=== PATIENT | male | born 1950 | race Caucasian/White ===

== ENCOUNTER 2019-09-30 05:23 | Emergency (ER) | payer MEDICARE, OTHER ==
[~2019-09-30] VITALS: Ht 177.8 cm; Wt 145.2 kg
[~2019-09-30 05:23] MED LIST: ALL DAY ALLERGY10 M1 PO; ASPI81CH PO; BUSP10 PO; DOCU100 PO; Diovan320 MG; FLUT.05NI; FURO20 PO; GABA300 PO; GLIP5 PO; GLUC500 PO; HYDCHL25 PO; LEVCAR10 PO; LORA1 PO; Lipoic Acid1 GM; METF500 PO; PREG75 PO; ROSU10TA PO
[2019-09-30 08:09] LABS: Alanine Aminotransfer (ALT/SGP 21 U/L (12-78); Albumin, Blood 3.4 g/dL (3.4-5.0); Albumin/Globulin Ratio 0.9 (0.8-1.8); Alk Phos 84 U/L (50-136); Anion Gap 4 mmol/L (6-16); Aspartate Aminotrans (AST/SGOT 11 U/L (12-37); Bilirubin, Total 0.6 mg/dL (0.1-1.0); Blood Urea Nitrogen 18 mg/dL (8-24); Bun/Creatinine Ratio 17.8 (12.0-20.0); CO2, Blood 29 mmol/L (21-32); Calcium, Blood 9.1 mg/dL (8.5-10.1); Chloride, Blood 104 mmol/L (98-108); Creatinine, Blood 1.01 mg/dL (0.60-1.20); Globulin, Blood 3.6 g/dL (2.2-4.0); Glomerular Filtration Rate >60 (60-); Glucose, Blood 153 mg/dL (70-99); Potassium, Blood 4.1 mmol/L (3.5-5.5); Sodium, Blood 137 mmol/L (136-145)
[2019-09-30 08:32] LABS: BASOPHILS ABSOLUTE AUTO 0.05 K/mm3 (0.00-0.23); BASOPHILS PERCENT AUTO 1 % (0-2); EOSINOPHILS ABSOLUTE AUTO 0.14 K/mm3 (0.00-0.68); EOSINOPHILS PERCENT AUTO 2 % (0-6); Hematocrit 44.2 % (37.0-53.0); Hemoglobin 15.1 g/dL (13.5-17.5); IMMATURE GRAN ABSOLUTE AUTO 0.03 K/mm3 (0.00-0.10); IMMATURE GRAN PERCENT AUTO 0 % (0-1); LYMPHOCYTES ABSOLUTE AUTO 1.26 K/mm3 (0.84-5.20); LYMPHOCYTES PERCENT AUTO 14 % (21-46); MONOCYTES ABSOLUTE AUTO 0.94 K/mm3 (0.16-1.47); MONOCYTES PERCENT AUTO 11 % (4-13); Mean Corpuscular HGB 31.1 pg (26.0-34.0); Mean Corpuscular HGB Conc 34.2 g/dL (31.5-36.5); Mean Corpuscular Volume 91 fL (80-100); Mean Platelet Volume 10.2 fL (9.1-12.4); NEUTROPHILS ABSOLUTE AUTO 6.57 K/mm3 (1.96-9.15); NEUTROPHILS PERCENT AUTO 73 % (41-73); Platelet Count 141 K/mm3 (150-400); RDW Coefficient Variation 12.4 % (11.7-14.2); RDW Standard Deviation 41.2 fL (35.1-46.3); Red Blood Cell Count 4.85 M/mm3 (4.30-5.90); White Blood Cell Count 8.99 K/mm3 (4.00-11.30)
== END 2019-09-30 09:50 | disposition home or self-care (01) ==
LOC: ER 05:23
PROVIDERS: Emergency Medicine
DX: J11.1 Influenza due to unidentified influenza virus with other respiratory manifestations (principal); E11.49 Type 2 diabetes mellitus with other diabetic neurological complication; F43.10 Post-traumatic stress disorder, unspecified; M54.5 Low back pain; G89.29 Other chronic pain; M47.819 Spondylosis without myelopathy or radiculopathy, site unspecified; Z87.891 Personal history of nicotine dependence; Z88.8 Allergy status to other drugs, medicaments and biological substances; Z79.84 Long term (current) use of oral hypoglycemic drugs; Z79.82 Long term (current) use of aspirin; Z79.899 Other long term (current) drug therapy
CPT/HCPCS: 36415; 71045; 80053; 85025; 94640; 99283-25; J7030

== ENCOUNTER 2021-05-24 21:54 | Emergency (ER) | payer OTHER | END 2021-05-24 22:22 | disposition left against medical advice (07) | LOC: ER 21:54 | DX: Z53.21 Procedure and treatment not carried out due to patient leaving prior to being seen by health care provider (principal) ==

== ENCOUNTER 2021-05-31 15:57 | Emergency (ER) | payer MEDICARE, OTHER ==
[~2021-05-31] VITALS: Ht 177.8 cm; Wt 154.2 kg
[2021-05-31 16:52] LABS: BASOPHILS ABSOLUTE AUTO 0.01 K/mm3 (0.00-0.23); BASOPHILS PERCENT AUTO 0 % (0-2); EOSINOPHILS PERCENT AUTO 0 % (0-6); Hematocrit 45.5 % (37.0-53.0); Hemoglobin 15.4 g/dL (13.5-17.5); IMMATURE GRAN ABSOLUTE AUTO 0.01 K/mm3 (0.00-0.10); IMMATURE GRAN PERCENT AUTO 0 % (0-1); LYMPHOCYTES ABSOLUTE AUTO 0.79 K/mm3 (0.84-5.20); LYMPHOCYTES PERCENT AUTO 18 % (21-46); MONOCYTES ABSOLUTE AUTO 0.49 K/mm3 (0.16-1.47); MONOCYTES PERCENT AUTO 11 % (4-13); Mean Corpuscular HGB Conc 33.8 g/dL (31.5-36.5); Mean Corpuscular Volume 89 fL (80-100); Mean Platelet Volume 10.2 fL (9.1-12.4); NEUTROPHILS ABSOLUTE AUTO 3.05 K/mm3 (1.96-9.15); NEUTROPHILS PERCENT AUTO 70 % (41-73); Platelet Count 119 K/mm3 (150-400); RDW Coefficient Variation 12.1 % (11.7-14.2); RDW Standard Deviation 39.8 fL (35.1-46.3); Red Blood Cell Count 5.13 M/mm3 (4.30-5.90); White Blood Cell Count 4.35 K/mm3 (4.00-11.30)
[2021-05-31 17:06] LABS: Albumin/Globulin Ratio 0.8 (0.8-1.8); Bilirubin, Total 0.4 mg/dL (0.1-1.0); Bun/Creatinine Ratio 19.7 (12.0-20.0); Calcium, Blood 8.4 mg/dL (8.5-10.1); Creatinine, Blood 1.27 mg/dL (0.60-1.20); Globulin, Blood 3.7 g/dL (2.2-4.0); Potassium, Blood 4.3 mmol/L (3.5-5.5); Total Protein, Blood 6.7 g/dL (6.4-8.2)
== END 2021-05-31 19:01 | disposition home or self-care (01) ==
LOC: ER 15:57
PROVIDERS: Emergency Medicine
DX: U07.1 COVID-19 (principal); J12.82 Pneumonia due to coronavirus disease 2019; N28.9 Disorder of kidney and ureter, unspecified; G89.29 Other chronic pain; E11.42 Type 2 diabetes mellitus with diabetic polyneuropathy; Z88.8 Allergy status to other drugs, medicaments and biological substances; Z79.84 Long term (current) use of oral hypoglycemic drugs; Z79.899 Other long term (current) drug therapy; Z79.82 Long term (current) use of aspirin; Z87.891 Personal history of nicotine dependence
CPT/HCPCS: 36415; 71045; 80053; 85025; 99285-25; J7030

== ENCOUNTER 2023-01-27 02:53 | Emergency (ER) | payer MEDICARE, OTHER ==
[~2023-01-27] VITALS: Ht 177.8 cm; Wt 131.5 kg
[2023-01-27 05:00] VITALS: BP 163/65
== END 2023-01-27 05:49 | disposition home or self-care (01) ==
LOC: ER 02:53
DX: S09.90XA Unspecified injury of head, initial encounter (principal); E11.42 Type 2 diabetes mellitus with diabetic polyneuropathy; Z88.8 Allergy status to other drugs, medicaments and biological substances; Z79.899 Other long term (current) drug therapy; Z79.84 Long term (current) use of oral hypoglycemic drugs; Z79.82 Long term (current) use of aspirin; Z87.891 Personal history of nicotine dependence; W19.XXXA Unspecified fall, initial encounter
CPT/HCPCS: 70450; 99283-25

== ENCOUNTER 2023-05-17 08:52 | Observation (INO) | payer MEDICARE, OTHER ==
[~2023-05-17] VITALS: Ht 177.8 cm; Wt 141.5 kg
[2023-05-17 09:30] LABS: BASOPHILS ABSOLUTE AUTO 0.04 K/mm3 (0.00-0.23); BASOPHILS PERCENT AUTO 1 % (0-2); EOSINOPHILS ABSOLUTE AUTO 0.11 K/mm3 (0.00-0.68); EOSINOPHILS PERCENT AUTO 2 % (0-6); Hematocrit 40.4 % (37.0-53.0); Hemoglobin 14.1 g/dL (13.5-17.5); IMMATURE GRAN ABSOLUTE AUTO 0.02 K/mm3 (0.00-0.10); IMMATURE GRAN PERCENT AUTO 0 % (0-1); LYMPHOCYTES ABSOLUTE AUTO 1.46 K/mm3 (0.84-5.20); LYMPHOCYTES PERCENT AUTO 26 % (21-46); MONOCYTES ABSOLUTE AUTO 0.48 K/mm3 (0.16-1.47); MONOCYTES PERCENT AUTO 8 % (4-13); Mean Corpuscular HGB 31.7 pg (26.0-34.0); Mean Corpuscular HGB Conc 34.9 g/dL (31.5-36.5); Mean Corpuscular Volume 91 fL (80-100); Mean Platelet Volume 10.5 fL (9.1-12.4); NEUTROPHILS PERCENT AUTO 63 % (41-73); Platelet Count 144 K/mm3 (150-400); RDW Coefficient Variation 12.2 % (11.7-14.2); RDW Standard Deviation 40.5 fL (35.1-46.3); Red Blood Cell Count 4.45 M/mm3 (4.30-5.90); White Blood Cell Count 5.71 K/mm3 (4.00-11.30)
[2023-05-17 09:45] LABS: Albumin, Blood 3.1 g/dL (3.4-5.0); Albumin/Globulin Ratio 1.2 (0.8-1.8); Bilirubin, Total 0.4 mg/dL (0.1-1.0); Bun/Creatinine Ratio 21.8 (12.0-20.0); Calcium, Blood 8.4 mg/dL (8.5-10.1); Creatinine, Blood 1.1 mg/dL (0.60-1.20); Globulin, Blood 2.6 g/dL (2.2-4.0); Magnesium, Blood 1.9 mg/dL (1.6-2.4); Total Protein, Blood 5.7 g/dL (6.4-8.2)
[2023-05-17 15:20] VITALS: BP 168/79
[2023-05-17 15:30] VITALS: BP 139/82
--- NOTE | 2023-05-17 17:43 | NUR ---
arrival to pcu/shift summary patient arrived at 1515 from ed. patient transfered to bed indepdently with this rn as a stand by. patient is alert and oriented x4. tele miguel angel type 2 60s. md rahman in room and discussed plan of care. patient verbalized understanding. patient has srs and needs to be woken up before being touched because patient throws punches. medications are not complete because fiance is going to bring in home medication list. otherwise admit is complete. see admit assessment. plan of care is up to date. call light within reach
[2023-05-17 19:47] VITALS: BP 181/80
[2023-05-18 03:50] VITALS: BP 183/69
[2023-05-18 03:56] LABS: BASOPHILS ABSOLUTE AUTO 0.05 K/mm3 (0.00-0.23); BASOPHILS PERCENT AUTO 1 % (0-2); EOSINOPHILS ABSOLUTE AUTO 0.12 K/mm3 (0.00-0.68); EOSINOPHILS PERCENT AUTO 2 % (0-6); Hemoglobin 15.1 g/dL (13.5-17.5); IMMATURE GRAN ABSOLUTE AUTO 0.01 K/mm3 (0.00-0.10); IMMATURE GRAN PERCENT AUTO 0 % (0-1); LYMPHOCYTES ABSOLUTE AUTO 1.73 K/mm3 (0.84-5.20); LYMPHOCYTES PERCENT AUTO 28 % (21-46); MONOCYTES ABSOLUTE AUTO 0.58 K/mm3 (0.16-1.47); MONOCYTES PERCENT AUTO 9 % (4-13); Mean Corpuscular HGB 30.8 pg (26.0-34.0); Mean Corpuscular HGB Conc 35.1 g/dL (31.5-36.5); Mean Corpuscular Volume 88 fL (80-100); Mean Platelet Volume 9.9 fL (9.1-12.4); NEUTROPHILS ABSOLUTE AUTO 3.67 K/mm3 (1.96-9.15); NEUTROPHILS PERCENT AUTO 60 % (41-73); Platelet Count 142 K/mm3 (150-400); RDW Coefficient Variation 12.1 % (11.7-14.2); RDW Standard Deviation 38.8 fL (35.1-46.3); Red Blood Cell Count 4.91 M/mm3 (4.30-5.90); White Blood Cell Count 6.16 K/mm3 (4.00-11.30)
[2023-05-18 04:10] LABS: International Normalized Ratio 1.04; Prothrombin Time Results 10.9 Sec (9.7-11.5)
[2023-05-18 04:20] LABS: Albumin, Blood 3.2 g/dL (3.4-5.0); Albumin/Globulin Ratio 1.2 (0.8-1.8); Bilirubin, Total 0.4 mg/dL (0.1-1.0); Bun/Creatinine Ratio 22.9 (12.0-20.0); Calcium, Blood 8.7 mg/dL (8.5-10.1); Creatinine, Blood 1.09 mg/dL (0.60-1.20); Globulin, Blood 2.7 g/dL (2.2-4.0); Potassium, Blood 3.8 mmol/L (3.5-5.5); Total Protein, Blood 5.9 g/dL (6.4-8.2)
[2023-05-18 05:50] VITALS: BP 184/77
--- NOTE | 2023-05-18 06:54 | NUR ---
SHIFT SUMMARY PT DENIES ANY EPISODES OF DIZZINESS OR WEAKNESS. PT HAS BEEN VOIDING WELL THROUGHOUT THE SHIFT. PT BLE REMAIN SWOLLEN WITH EDEMA. THERE HAS BEEN NO ISSUES WITH HEART RATE. PT HAS BEEN ABLE TO SLEEP THROUGHOUT SHIFT. CALL LIGHT IN REACH.
[2023-05-18 07:31] VITALS: BP 176/65
[2023-05-18] MEDS ORDERED: BUSP10 PO (09:31)
[2023-05-18] MEDS ORDERED: MELA3 PO (09:35)
[2023-05-18] MEDS ORDERED: ATOR10 PO (10:25)
[2023-05-18] MEDS ORDERED: LOSA50 PO (10:26)
[2023-05-18] MEDS ORDERED: HYDRA50 PO (10:26)
[2023-05-18] MEDS ORDERED: CARBATROL300 M1 PO (10:29)
[2023-05-18] MEDS ORDERED: Norco 10-325 T1 EACH PO (10:29)
[2023-05-18] MEDS ORDERED: PRAZ2 PO (10:30)
--- NOTE | 2023-05-18 11:35 | NUR ---
DISCHARGE NOTE This Rn assumed care at 0700. blood pressure hypertensive, and patient received medication per order. patient is alert and oriented x4. perrla. neuro is intact. patient reports no chest pain/pressure, shortness of breath or pain. see shift assessment for further detials. md at beside and discussed plan of care. patient from a cardiology stand point okay to discharge. heart center staff into room and placed zio patch on patient. patient education provided. this rn went over new blood pressure medication and mobitz type 2 heart block. patient and patient significant other verbalized understanding. patient left with all belongings and discharge education. patient left in no distress.
== END 2023-05-18 11:25 | disposition home or self-care (01) ==
LOC: ER 08:52 → PCU 13:53
PROVIDERS: Student in an Organized Health Care Education/Training Program; ADMIT Internal Medicine
DX: I44.1 Atrioventricular block, second degree (principal); R55 Syncope and collapse; I10 Essential (primary) hypertension; G47.33 Obstructive sleep apnea (adult) (pediatric); F43.10 Post-traumatic stress disorder, unspecified; E11.42 Type 2 diabetes mellitus with diabetic polyneuropathy; E66.9 Obesity, unspecified; M13.89 Other specified arthritis, multiple sites; Q89.8 Other specified congenital malformations; G25.81 Restless legs syndrome; E78.5 Hyperlipidemia, unspecified; G89.29 Other chronic pain; M54.50 Low back pain, unspecified; Z88.8 Allergy status to other drugs, medicaments and biological substances; Z88.5 Allergy status to narcotic agent; Z88.9 Allergy status to unspecified drugs, medicaments and biological substances; Z87.891 Personal history of nicotine dependence; Z79.84 Long term (current) use of oral hypoglycemic drugs
CPT/HCPCS: 36415; 71046; 80053; 82947; 83735; 83880; 84484; 85025; 85610; 93005; 93010; 93246; 93306; 96374; 99285-25; A9270; J0360; J1940

== ENCOUNTER 2023-05-21 01:07 | Inpatient (IN) | payer MEDICARE, OTHER | END 2023-05-25 18:51 | disposition home or self-care (01) | DRG 243 | LOC: ER 01:07 → MEDS 01:08 → PCU 11:00 → ICUE 14:36 | PROVIDERS: ADMIT Internal Medicine | PROC: 027035Z Dilation of Coronary Artery, One Artery with Two Drug-eluting Intraluminal Devices, Percutaneous Approach (ICD-10-PCS; 2023-05-21) | PROC: 4A023N7 Measurement of Cardiac Sampling and Pressure, Left Heart, Percutaneous Approach (ICD-10-PCS; 2023-05-21) | PROC: B2111ZZ Fluoroscopy of Multiple Coronary Arteries using Low Osmolar Contrast (ICD-10-PCS; 2023-05-21) | PROC: B240ZZ3 Ultrasonography of Single Coronary Artery, Intravascular (ICD-10-PCS; 2023-05-21) | PROC: 027136Z Dilation of Coronary Artery, Two Arteries with Three Drug-eluting Intraluminal Devices, Percutaneous Approach (ICD-10-PCS; 2023-05-22) | PROC: 4A023N7 Measurement of Cardiac Sampling and Pressure, Left Heart, Percutaneous Approach (ICD-10-PCS; 2023-05-22) | PROC: B2111ZZ Fluoroscopy of Multiple Coronary Arteries using Low Osmolar Contrast (ICD-10-PCS; 2023-05-22) | PROC: B240ZZ3 Ultrasonography of Single Coronary Artery, Intravascular (ICD-10-PCS; 2023-05-22) | PROC: 0JH606Z Insertion of Pacemaker, Dual Chamber into Chest Subcutaneous Tissue and Fascia, Open Approach (ICD-10-PCS; principal; 2023-05-24) | PROC: 02H63JZ Insertion of Pacemaker Lead into Right Atrium, Percutaneous Approach (ICD-10-PCS; 2023-05-24) | PROC: 02HK3JZ Insertion of Pacemaker Lead into Right Ventricle, Percutaneous Approach (ICD-10-PCS; 2023-05-24) | DX: I21.4 Non-ST elevation (NSTEMI) myocardial infarction (principal); I97.630 Postprocedural hematoma of a circulatory system organ or structure following a cardiac catheterization; Z68.41 Body mass index [BMI] 40.0-44.9, adult; I44.1 Atrioventricular block, second degree; R55 Syncope and collapse; I25.10 Atherosclerotic heart disease of native coronary artery without angina pectoris; G47.33 Obstructive sleep apnea (adult) (pediatric); E66.01 Morbid (severe) obesity due to excess calories; E78.5 Hyperlipidemia, unspecified; I10 Essential (primary) hypertension; G89.29 Other chronic pain; E11.42 Type 2 diabetes mellitus with diabetic polyneuropathy; M19.90 Unspecified osteoarthritis, unspecified site; I45.5 Other specified heart block; F43.12 Post-traumatic stress disorder, chronic; M54.50 Low back pain, unspecified; R94.31 Abnormal electrocardiogram [ECG] [EKG]; I49.8 Other specified cardiac arrhythmias; Y83.8 Other surgical procedures as the cause of abnormal reaction of the patient, or of later complication, without mention of misadventure at the time of the procedure; Z98.890 Other specified postprocedural states; Z88.8 Allergy status to other drugs, medicaments and biological substances; Z79.899 Other long term (current) drug therapy; Z79.01 Long term (current) use of anticoagulants; Z79.82 Long term (current) use of aspirin; Z98.1 Arthrodesis status; Z87.891 Personal history of nicotine dependence; Z79.02 Long term (current) use of antithrombotics/antiplatelets; Z98.61 Coronary angioplasty status; Z79.52 Long term (current) use of systemic steroids; Z71.6 Tobacco abuse counseling ==

== ENCOUNTER 2023-06-05 22:08 | Inpatient (IN) | payer MEDICARE, OTHER ==
[~2023-06-05] VITALS: Ht 177.8 cm; Wt 277.5 kg
[~2023-06-05 22:08] MED LIST changes: +AMLO5 PO; +ATOR10 PO; +CARBATROL300 M1 PO; +CARBIDOPA LEVODOPA PO; +CARBIDOPA-LEVO1 EA21 PO; +HYDRA50 PO; +JARDIANCE10 MG PO; -LEVCAR10 PO; +LOSA50 PO; +MELA3 PO; +METO25ER PO; +Norco 5-325 Ta1 EACH PO; +PRAZ2 PO; +TICA90TA PO; +TORSE20 PO
[2023-06-05 22:53] LABS: BASOPHILS ABSOLUTE AUTO 0.05 K/mm3 (0.00-0.23); BASOPHILS PERCENT AUTO 1 % (0-2); EOSINOPHILS ABSOLUTE AUTO 0.02 K/mm3 (0.00-0.68); EOSINOPHILS PERCENT AUTO 0 % (0-6); Hemoglobin 13.3 g/dL (13.5-17.5); IMMATURE GRAN ABSOLUTE AUTO 0.02 K/mm3 (0.00-0.10); IMMATURE GRAN PERCENT AUTO 0 % (0-1); LYMPHOCYTES PERCENT AUTO 6 % (21-46); MONOCYTES ABSOLUTE AUTO 0.72 K/mm3 (0.16-1.47); MONOCYTES PERCENT AUTO 10 % (4-13); Mean Corpuscular HGB 31.4 pg (26.0-34.0); Mean Corpuscular Volume 90 fL (80-100); Mean Platelet Volume 10.3 fL (9.1-12.4); NEUTROPHILS ABSOLUTE AUTO 5.93 K/mm3 (1.96-9.15); NEUTROPHILS PERCENT AUTO 83 % (41-73); Platelet Count 192 K/mm3 (150-400); RDW Coefficient Variation 12.2 % (11.7-14.2); RDW Standard Deviation 39.8 fL (35.1-46.3); Red Blood Cell Count 4.24 M/mm3 (4.30-5.90); White Blood Cell Count 7.14 K/mm3 (4.00-11.30)
[2023-06-05 23:18] LABS: Magnesium, Blood 2.2 mg/dL (1.6-2.4)
[2023-06-05 23:41] LABS: Albumin, Blood 3.5 g/dL (3.4-5.0); Bilirubin, Total 0.7 mg/dL (0.1-1.0); Bun/Creatinine Ratio 18.2 (12.0-20.0); Calcium, Blood 9.2 mg/dL (8.5-10.1); Creatinine, Blood 1.92 mg/dL (0.60-1.20); Globulin, Blood 3.5 g/dL (2.2-4.0); Potassium, Blood 4.2 mmol/L (3.5-5.5)
[2023-06-06 03:41] VITALS: BP 135/73
[2023-06-06 05:03] LABS: BASOPHILS ABSOLUTE AUTO 0.06 K/mm3 (0.00-0.23); BASOPHILS PERCENT AUTO 1 % (0-2); EOSINOPHILS ABSOLUTE AUTO 0.01 K/mm3 (0.00-0.68); EOSINOPHILS PERCENT AUTO 0 % (0-6); Hematocrit 37.2 % (37.0-53.0); IMMATURE GRAN ABSOLUTE AUTO 0.03 K/mm3 (0.00-0.10); IMMATURE GRAN PERCENT AUTO 1 % (0-1); LYMPHOCYTES ABSOLUTE AUTO 0.69 K/mm3 (0.84-5.20); LYMPHOCYTES PERCENT AUTO 11 % (21-46); MONOCYTES ABSOLUTE AUTO 0.78 K/mm3 (0.16-1.47); MONOCYTES PERCENT AUTO 12 % (4-13); Mean Corpuscular HGB 31.2 pg (26.0-34.0); Mean Corpuscular HGB Conc 34.9 g/dL (31.5-36.5); Mean Corpuscular Volume 89 fL (80-100); Mean Platelet Volume 10.1 fL (9.1-12.4); NEUTROPHILS PERCENT AUTO 75 % (41-73); Platelet Count 185 K/mm3 (150-400); RDW Coefficient Variation 12.2 % (11.7-14.2); RDW Standard Deviation 39.4 fL (35.1-46.3); Red Blood Cell Count 4.17 M/mm3 (4.30-5.90); White Blood Cell Count 6.37 K/mm3 (4.00-11.30)
[2023-06-06 05:37] LABS: Albumin, Blood 3.2 g/dL (3.4-5.0); Bilirubin, Total 0.7 mg/dL (0.1-1.0); Bun/Creatinine Ratio 21.7 (12.0-20.0); Calcium, Blood 8.9 mg/dL (8.5-10.1); Creatinine, Blood 1.57 mg/dL (0.60-1.20); Globulin, Blood 3.2 g/dL (2.2-4.0); Magnesium, Blood 2.1 mg/dL (1.6-2.4); Potassium, Blood 3.7 mmol/L (3.5-5.5); Total Protein, Blood 6.4 g/dL (6.4-8.2)
--- NOTE | 2023-06-06 06:14 | NUR ---
Shift Summary Pt came to this unit from ED w/ dx of Syncope. Pt states he has fallen many times in the last few years, and he is feeling weak after pacemaker placement a week or two ago. He says his recent episode of syncope was very sudden and he had no time to react. Pt is AOx4 and agreed to stay in bed for tonight. He is continent and uses the urinal. He has a very painful back during ambulation due to chronic arthritis. He has +2 edema in BLE with the L side being worse, pt states this is normal for him and has been going on for years. He has DM2 which he has not been managing for over a year because of the of his late . He is on tele running paced rythm at 90. A pace maker interrogation was performed in the ED.
[2023-06-06 07:41] VITALS: BP 140/87
[2023-06-06 14:12] VITALS: BP 158/86
--- NOTE | 2023-06-06 15:07 | NUR ---
Pt. is awake in bed and welcomes my visit. Pt. is aquainted with the legal examiner from a recent hospital visit so rapport is re-established. Pt. is pleasant and verbalizes his appreciation for the care he is receiving at [facility]. Pt. displays evidence of loniless and continues to verbalize about past relationships in his life. Pt. also displays evidence of unresolved grief from the loss of his first life. Listened with a calming presence and reinforced helpful attitudes and practices. Prayed with Pt. Pt. verbalized gratitude for the spiritual care visit.
[2023-06-06 15:17] VITALS: BP 164/84
--- NOTE | 2023-06-06 19:31 | NUR ---
SHIFT SUMMARY PATIENT WITH OCCAISIONAL SHORTNESS OF BREATH THROUGHOUT DAY GOES AWAY WITHIN MINUTES, PATIENT PACED AT 90 WITH OCCAISIONAL PVCS, DR GERBER AWARE AND MONITORING. BED IN LOW POSITION, CALL LIGHT IN REACH. PATIENT CALLS APPROPRIATELY
[2023-06-06 20:12] VITALS: BP 159/89
--- NOTE | 2023-06-06 22:30 | NUR ---
URINE SAMPLE COLLECTED AND SENT TO LAB.
[2023-06-06 22:35] LABS: Source, Urine Clean Catch
[2023-06-06 22:39] LABS: Appearance, Urine Clear (Clear); Bilirubin, Urine Neg (Neg); Blood, Urine Neg (Neg); Color, Urine Yellow (P-Yellow); Glucose Qualitative, Urine 4+ (Neg); Ketones, Urine Neg (Neg); Leukocyte Esterase, Urine Neg (Neg); Nitrite, Urine Neg (Neg); Protein, Urine 1+ (Neg); Urobilinogen, Urine NORM (Normal)
[2023-06-07 03:12] VITALS: BP 191/95
[2023-06-07 04:43] VITALS: BP 148/83
--- NOTE | 2023-06-07 04:55 | NUR ---
SHIFT SUMMARY PATIENT FEBRILE WITH TEMP OF 100.2 TO 100.8 AND TYLENOL 650 MG GIVEN PER EMAR. TEMP RECHECKED AT 98.6 AND DOWN TO 98.3. REPORTED LEG PAIN X ONE AND NORCO GIVEN PER EMAR. REPORTED COUGH AND TESSALON 100 MG GIVEN PER EMAR. BP ELEVATED 191/95 WITH REPORTED PAIN. RECHECKED AT 148/93 AFTER TYLENOL GIVEN. ON TELEMETRY PACED @ 79. CBG 160. CALL LIGHT IN REACH. BED IN LOWEST POSITION. WILL CONTINUE TO MONITOR UNTIL DAY SHIFT NURSE ASSUMES CARE.
[2023-06-07 07:19] VITALS: BP 159/73
[2023-06-07 08:35] LABS: BASOPHILS ABSOLUTE AUTO 0.05 K/mm3 (0.00-0.23); BASOPHILS PERCENT AUTO 1 % (0-2); EOSINOPHILS ABSOLUTE AUTO 0.01 K/mm3 (0.00-0.68); EOSINOPHILS PERCENT AUTO 0 % (0-6); Hematocrit 38.4 % (37.0-53.0); Hemoglobin 13.4 g/dL (13.5-17.5); IMMATURE GRAN ABSOLUTE AUTO 0.02 K/mm3 (0.00-0.10); IMMATURE GRAN PERCENT AUTO 0 % (0-1); LYMPHOCYTES ABSOLUTE AUTO 1.01 K/mm3 (0.84-5.20); LYMPHOCYTES PERCENT AUTO 20 % (21-46); MONOCYTES ABSOLUTE AUTO 0.87 K/mm3 (0.16-1.47); MONOCYTES PERCENT AUTO 17 % (4-13); Mean Corpuscular HGB 30.9 pg (26.0-34.0); Mean Corpuscular HGB Conc 34.9 g/dL (31.5-36.5); Mean Corpuscular Volume 89 fL (80-100); Mean Platelet Volume 10.5 fL (9.1-12.4); NEUTROPHILS ABSOLUTE AUTO 3.21 K/mm3 (1.96-9.15); NEUTROPHILS PERCENT AUTO 62 % (41-73); Platelet Count 182 K/mm3 (150-400); RDW Coefficient Variation 12.1 % (11.7-14.2); RDW Standard Deviation 39.5 fL (35.1-46.3); Red Blood Cell Count 4.34 M/mm3 (4.30-5.90); White Blood Cell Count 5.17 K/mm3 (4.00-11.30)
[2023-06-07 08:56] LABS: Bun/Creatinine Ratio 21.9 (12.0-20.0); Calcium, Blood 8.7 mg/dL (8.5-10.1); Creatinine, Blood 1.28 mg/dL (0.60-1.20); Potassium, Blood 3.9 mmol/L (3.5-5.5)
--- NOTE | 2023-06-07 14:41 | NUR ---
DISCHARGE SUMMARY PATIENT WITH NO ACUTE EVENTS DURING SHIFT. PATIENT MEDICATION AND EDUCATION PACKET PRINTED AND PROVIDED TO PATIENT. CONSENT SIGNED. IV AND TELEMETRY REMOVED. PATIENT LEFT FLOOR WITH AND [facility]UR[facility] CNA VIA WHEELCHAIR AND ESCORTED TO PATEINT EXIT, LEAVING VIA PRIVATE VEHICLE WITH AT 1430
== END 2023-06-07 14:37 | disposition home or self-care (01) | DRG 683 ==
LOC: ER 22:08 → MEDS 22:09 → ERHOLD 22:09 → MEDS 06-06 03:29
PROVIDERS: Internal Medicine; Student in an Organized Health Care Education/Training Program; ADMIT Student in an Organized Health Care Education/Training Program
DX: N17.9 Acute kidney failure, unspecified (principal); I50.32 Chronic diastolic (congestive) heart failure; Z68.41 Body mass index [BMI] 40.0-44.9, adult; M47.9 Spondylosis, unspecified; G89.29 Other chronic pain; I44.1 Atrioventricular block, second degree; E66.01 Morbid (severe) obesity due to excess calories; F43.12 Post-traumatic stress disorder, chronic; E86.0 Dehydration; I95.1 Orthostatic hypotension; I11.0 Hypertensive heart disease with heart failure; E10.42 Type 1 diabetes mellitus with diabetic polyneuropathy; E10.65 Type 1 diabetes mellitus with hyperglycemia; I25.10 Atherosclerotic heart disease of native coronary artery without angina pectoris; Z95.5 Presence of coronary angioplasty implant and graft; Z88.5 Allergy status to narcotic agent; Z88.8 Allergy status to other drugs, medicaments and biological substances; Z79.82 Long term (current) use of aspirin; Z79.891 Long term (current) use of opiate analgesic; Z79.899 Other long term (current) drug therapy; I25.2 Old myocardial infarction; Z98.1 Arthrodesis status; Z95.0 Presence of cardiac pacemaker; Z98.890 Other specified postprocedural states; Z87.891 Personal history of nicotine dependence
CPT/HCPCS: 36415; 71045; 80048; 80053; 82947; 83735; 83880; 84145; 84484; 85025; 93005; 93010; 96360; 99285-25; A9270; J1650; J2405; J7030; J7040

== ENCOUNTER 2024-06-04 23:12 | Emergency (ER) | payer MEDICARE, OTHER ==
[~2024-06-04] VITALS: Ht 177.8 cm; Wt 136.1 kg
[2024-06-04 23:30] LABS: BASOPHILS ABSOLUTE AUTO 0.05 K/mm3 (0.00-0.23); BASOPHILS PERCENT AUTO 1 % (0-2); EOSINOPHILS ABSOLUTE AUTO 0.07 K/mm3 (0.00-0.68); EOSINOPHILS PERCENT AUTO 1 % (0-6); Hematocrit 41.2 % (37.0-53.0); Hemoglobin 14.5 g/dL (13.5-17.5); IMMATURE GRAN ABSOLUTE AUTO 0.02 K/mm3 (0.00-0.10); IMMATURE GRAN PERCENT AUTO 0 % (0-1); LYMPHOCYTES ABSOLUTE AUTO 2.01 K/mm3 (0.84-5.20); LYMPHOCYTES PERCENT AUTO 33 % (21-46); MONOCYTES PERCENT AUTO 10 % (4-13); Mean Corpuscular HGB Conc 35.2 g/dL (31.5-36.5); Mean Corpuscular Volume 88 fL (80-100); Mean Platelet Volume 10.4 fL (9.1-12.4); NEUTROPHILS ABSOLUTE AUTO 3.42 K/mm3 (1.96-9.15); NEUTROPHILS PERCENT AUTO 56 % (41-73); Platelet Count 172 K/mm3 (150-400); RDW Coefficient Variation 12.3 % (11.7-14.2); RDW Standard Deviation 39.6 fL (35.1-46.3); Red Blood Cell Count 4.68 M/mm3 (4.30-5.90); White Blood Cell Count 6.17 K/mm3 (4.00-11.30)
[2024-06-04 23:53] LABS: Albumin, Blood 3.2 g/dL (3.4-5.0); Bilirubin, Total 0.3 mg/dL (0.1-1.0); Bun/Creatinine Ratio 19.3 (12.0-20.0); Calcium, Blood 8.7 mg/dL (8.5-10.1); Creatinine, Blood 1.09 mg/dL (0.60-1.20); Globulin, Blood 3.1 g/dL (2.2-4.0); Potassium, Blood 4.5 mmol/L (3.5-5.5); Total Protein, Blood 6.3 g/dL (6.4-8.2)
[2024-06-05] MEDS ORDERED: Insulin Regular 100 Unit/ML 1ML Dose IV ONE (00:25)
[2024-06-05 00:47] VITALS: BP 158/98
== END 2024-06-05 01:10 | disposition home or self-care (01) ==
LOC: ER 23:12
PROVIDERS: Emergency Medicine
DX: E11.65 Type 2 diabetes mellitus with hyperglycemia (principal); R07.2 Precordial pain; Z88.8 Allergy status to other drugs, medicaments and biological substances; Z79.899 Other long term (current) drug therapy; Z79.82 Long term (current) use of aspirin; F43.10 Post-traumatic stress disorder, unspecified; E11.42 Type 2 diabetes mellitus with diabetic polyneuropathy; I11.0 Hypertensive heart disease with heart failure; I50.30 Unspecified diastolic (congestive) heart failure; Z87.891 Personal history of nicotine dependence
CPT/HCPCS: 71046; 80053; 82947; 84484; 85025; 93005; 93010; 99285-25